=== PATIENT | female | born 1930 | race Caucasian/White ===

== ENCOUNTER 2018-11-03 19:30 | Observation (INO) ==
--- NOTE | 2018-11-03 20:03 | Emergency Department Note ---
Disposition Clinical Impression: TIA (transient ischemic attack) Disposition: Admitted As Inpatient Condition: Fair Referrals: Chito Lew MD [Primary Care Provider] - Forms: ED Satisfaction Letter Time of Disposition: 21:28 General Adult HPI - General Chief complaint: ED Neuro Symptoms/Deficit Stated complaint: "Thinks She Had a Stroke" Time Seen by Provider: 11/03/18 19:44 Source: patient Mode of arrival: ambulatory Limitations: no limitations Nursing Notes Reviewed: Yes Vital Signs Reviewed: Yes - History of Present Illness HPI Narrative: Patient is an 88-year-old female with past medical history of high blood pressure presents to the ED for evaluation of shock like symptoms that occurred at 1800 today. States that she is sitting in a chair reading a book when she had weakness in the left upper extremity and then she got up to walk and notices weakness in her left lower extremity. States that she had difficulty co ntrolling her left upper and left lower extremity. States this lasted for approximately 20 minutes and the symptoms gradually improved. Therefore symptom onset was 2 hours prior to arrival. She denies history of strokes. States that she took a full aspirin dose prior to coming in. Pain Scale: 0 - Related Data Home Medications Medication Instructions Recorded Confirmed Aspirin 162 mg PO HS 11/03/18 11/03/18 Metoprolol Succinate [Toprol Xl] 25 mg PO BID 11/03/18 11/03/18 Quetiapine Fumarate [Seroquel] 25 mg PO DAILY 11/03/18 11/03/18 Allergies Allergy/AdvReac Type Severity Reaction Status Date / Time Procaine [From Novocain] Allergy Nausea Verified 09/29/17 10:03 All systems ED: reviewed and negative except as stated. Review of Systems: As Per HPI Constitutional: Denies: fever, chills Eyes: Denies: eye pain, eye discharge, vision change Cardiovascular: Denies: chest pain, palpitations, dyspnea on exertion Respiratory: Denies: cough, dyspnea, wheezes Gastrointestinal: Denies: abdominal pain Musculoskeletal: Denies: back pain, neck pain Integumentary: Denies: rash Neurological: Reports: weakness, numbness. Denies: headache, paresthesias, confusion, abnormal gait Past Medical History - Past Medical History Attestation: Yes The following information was validated with the patient. Medical history: Reports: hypertension Psychiatric history: Reports: anxiety - Social History Smoking Status: Never smoker Smokeless Tobacco Status: No Alcohol use: Reports: none Physical Exam CONSTITUTIONAL: Well-appearing; well-nourished; A&O X 3, in no apparent distress HEAD: Normocephalic; atraumatic EYES: PERRL, no scleral icterus NOSE: The nose is normal in appearance without rhinorrhea NECK: No JVD or distended neck veins RESP: Normal chest excursion with respiration; breath sounds clear and equal bilaterally; no wheezes, rhonchi, or rales CARD: Regular rhythm, without murmurs, rub or gallop ABD: Non-distended; non-tender, soft, without rigidity, rebound or guarding,no pulsatile mass CHEST: No pain with palpation SKIN: Normal for age and race; warm and dry without diaphoresis ; no apparent lesions EXTREMITIES: Pulses are 2 plus and equal times 4 extremities, no peripheral edema or calf muscle pain NEUROLOGICAL: Patient is alert and oriented times three. Cranial nerves III-X II are intact. Sensory and motor functions are intact. Strength is 5/5 for flexion and extension in all 4 extremities. Patellar DTRS are equal and intact. Finger to nose testing is equal and normal bilaterally. - General Limitations: no limitations General appearance: alert, in no apparent distress Course Course Narrative: Patient's NIH stroke scale score 0 at this time. Her symptoms have completely resolved. Sounds like these symptoms occurred approximately 2 hours prior to arrival by the time arrival to the ED the patient is reporting no more symptoms states that she feels she is at her baseline. She is alert and oriented 3. With no focal deficits. Patient will undergo workup for TIA versus stroke and ultimately be admitted to the hospital for further evaluation and treatment. - Reevaluation(s) Reevaluation #1: Patient's head CT was negative for any acute intercranial abnormality. I will discuss the patient's case with the hospitalist to bring her in for evaluation for TIA workup. I discussed this with the patient and she agrees with that plan. She continues to remain asymptomatic. Time: 21:28 Reevaluation #2: Patient accepted by Dr. Bradshaw to the hospital for further workup of stroke/TIA. Time: 22:40 Vital Signs Temperature 97.9 F 11/03/18 19:48 Pulse Rate 82 11/03/18 19:48 Respiratory Rate 16 11/03/18 19:48 Blood Pressure 185/78 11/03/18 19:48 O2 Sat by Pulse Oximetry 97 11/03/18 19:48 Temperature 97.9 F 11/03/18 19:48 Pulse Rate 82 11/03/18 19:48 Respiratory Rate 16 11/03/18 19:48 Blood Pressure 185/78 11/03/18 19:48 O2 Sat by Pulse Oximetry 97 11/03/18 19:48 Oxygen Delivery Oxygen Delivery Room Air Medical Decision Making - Medical Records Medical records reviewed: Yes I reviewed the patient's medical records. - Lab Data Lab results reviewed: Yes I reviewed the patient's lab results. Result diagrams: 11/03/18 20:27 11/03/18 20:27 Lab Results 11/03/18 11/03/18 Range/Units 20:27 20:27 WBC 6.9 (4.3-11.1) K/mcL RBC 4.59 (3.82-4.97) M/mcL Hgb 14.8 (11.5-15.4) g/dL Hct 44.0 (35.3-44.9) % MCV 95.9 (83.0-100.0) fL MCH 32.2 (28.0-33.3) pg MCHC 33.6 (31.6-35.5) g/dL RDW 13.2 (11.5-14.5) % Plt Count 202 (140-400) K/mcL MPV 10.0 (9.4-12.4) fL Sodium 139 (136-145) mEq/L Potassium 4.4 (3.5-5.1) mEq/L Chloride 106 (98-107) mEq/L Carbon Dioxide 26 (23-29) mEq/L BUN 22 (8-23) mg/dL Creatinine 0.98 (0.60-1.20) mg/dL Est GFR ( Amer) > 60 (> 60) Est GFR (Non-Af Amer) 54 L (> 60) BUN/Creatinine Ratio 22 (6-26) Glucose 110 H (70-105) mg/dL Calculated Osmolality 292 (280-300) Calcium 9.8 (8.6-10.3) mg/dL - Radiology Data Radiology results reviewed: Yes I reviewed the patient's radiology results. Head CT 11/03/18 20:02 IMPRESSION: No acute intracranial abnormality. D/ / Kylee Abrams MD / Kylee Abrams MD Interpreting Provider: Kylee Abrams MD - EKG Data EKG #1 EKG attestation: Yes I reviewed and interpreted this EKG. EKG results narrative: EKG done at 19:48 shows sinus rhythm at a rate of 79 bpm. Normal axis. Widened QRS at 142 with a right bundle branch block which appears to be old from an EKG done on 03/04/2013. No STEMI
--- NOTE | 2018-11-03 20:34 | Emergency Department Note ---
Disposition Clinical Impression: TIA (transient ischemic attack) Disposition: Admitted As Inpatient Condition: Fair General Adult HPI - General Chief complaint: ED Neuro Symptoms/Deficit Stated complaint: "Thinks She Had a Stroke" Time Seen by Provider: 11/03/18 19:44 Source: patient Limitations: no limitations - History of Present Illness Pain Scale: 0 - Related Data Home Medications Medication Instructions Recorded Confirmed Aspirin 162 mg PO HS 11/03/18 11/03/18 Metoprolol Succinate [Toprol Xl] 25 mg PO BID 11/03/18 11/03/18 Quetiapine Fumarate [Seroquel] 25 mg PO DAILY 11/03/18 11/03/18 Allergies Allergy/AdvReac Type Severity Reaction Status Date / Time Procaine [From Novocain] Allergy Nausea Verified 09/29/17 10:03 Past Medical History - Past Medical History Medical history: Reports: hypertension Psychiatric history: Reports: anxiety - Social History Smoking Status: Never smoker Smokeless Tobacco Status: No Alcohol use: Reports: none Physical Exam - General Limitations: no limitations General appearance: alert, in no apparent distress Course Vital Signs Temperature 97.9 F 11/03/18 19:48 Pulse Rate 82 11/03/18 19:48 Respiratory Rate 16 11/03/18 19:48 Blood Pressure 185/78 11/03/18 19:48 O2 Sat by Pulse Oximetry 97 11/03/18 19:48 Temperature 98 F 11/04/18 00:10 Pulse Rate 64 11/04/18 00:10 Respiratory Rate 12 11/04/18 00:10 Blood Pressure 146/80 11/04/18 00:10 O2 Sat by Pulse Oximetry 95 11/04/18 00:10 Oxygen Delivery Oxygen Delivery Room Air Medical Decision Making - Lab Data Result diagrams: 11/03/18 20:27 11/03/18 20:27 Lab Results 11/03/18 11/03/18 Range/Units 20:27 20:27 WBC 6.9 (4.3-11.1) K/mcL RBC 4.59 (3.82-4.97) M/mcL Hgb 14.8 (11.5-15.4) g/dL Hct 44.0 (35.3-44.9) % MCV 95.9 (83.0-100.0) fL MCH 32.2 (28.0-33.3) pg MCHC 33.6 (31.6-35.5) g/dL RDW 13.2 (11.5-14.5) % Plt Count 202 (140-400) K/mcL MPV 10.0 (9.4-12.4) fL Sodium 139 (136-145) mEq/L Potassium 4.4 (3.5-5.1) mEq/L Chloride 106 (98-107) mEq/L Carbon Dioxide 26 (23-29) mEq/L BUN 22 (8-23) mg/dL Creatinine 0.98 (0.60-1.20) mg/dL Est GFR ( Amer) > 60 (> 60) Est GFR (Non-Af Amer) 54 L (> 60) BUN/Creatinine Ratio 22 (6-26) Glucose 110 H (70-105) mg/dL Calculated Osmolality 292 (280-300) Calcium 9.8 (8.6-10.3) mg/dL Attestation Statement - Attestation Attestation: I examined this patient and my medical decision-making was reviewed with the Resident Physician. I agree with the documented findings, disposition and treatment plan as described except to the extent set forth below. 20-30 minutes of left-sided weakness that spontaneously resolved. Currently asymptomatic with no motor weakness, no pronator drift on my exam, normal speech and mental status. Suspect TIA. Plan for admission for evaluation.
[2018-11-03 20:40] LABS: Hemoglobin 14.8 g/dL (11.5-15.4); Mean Corpuscular HGB Conc 33.6 g/dL (31.6-35.5); Mean Corpuscular Hemoglobin 32.2 pg (28.0-33.3); Mean Corpuscular Volume 95.9 fL (83.0-100.0); Platelet Count 202 K/mcL (140-400); Red Blood Count 4.59 M/mcL (3.82-4.97); Red Cell Distribution Width 13.2 % (11.5-14.5)
[2018-11-03 21:01] LABS: BUN/Creatinine Ratio 22 (6-26); Blood Urea Nitrogen 22 mg/dL (8-23); Calcium 9.8 mg/dL (8.6-10.3); Carbon Dioxide 26 mEq/L (23-29); Chloride 106 mEq/L (98-107); Glucose 110 mg/dL (70-105); Osmolality,Calculated 292 (280-300); Potassium 4.4 mEq/L (3.5-5.1); Sodium 139 mEq/L (136-145); eGFR For Non-African Americans 54 (> 60)
[2018-11-04] MEDS ORDERED: Naloxone 0.4 MG/ML INJ IVP PRN (01:34)
--- NOTE | 2018-11-04 02:17 | Internal Med History&Physical ---
Date of Encounter: 11/04/18 Time of Encounter: 00:00 Internal Medicine - H&P: HPI Chief complaint: Stroke Like Symptoms Admitted From: Home Plans for Post Hospital Care: Home History of present illness: Ms. Adair is a 88 year old female with past medical history significant for hypertension, anxiety, and spinal stenosis who presents for complaints of weakness to her left upper and lower extremities. States she was unable to move her left arm or left leg and describes it as "loosing control of her left arm and leg". Symptoms lasted around 30 minutes and resolved spontaneously. Symptom onset was around 2 hours prior to arrival to ER. Patient also reports taking a 324 mg aspirin at home. Son was with her during symptoms and reported she seemed to also have slurred speech. Patient denies any other symptoms during event. Head CT obtained in ER showed no acute intracranial abnormality. ER reported EKG as sinus rhythm with prior right bundle branch block when compared with previous EKG on file. Currently denies any headache, vision changes, chest pain, shortness of breath, abdominal pain, numbness, tingling, lightheadedness, dizziness, bowel or bladder changes. Has no previous history of stroke or TIA in the past. Follows regularly with primary care provider for management of hypertension and anxiety. Reports checking blood pressures periodically at home and they have been averaging in the 130's systolic. Seen by Nayanadanielle Gupta in December 2017 for low back pain and left leg weakness and had a lumbar spine MRI completed which showed disc narrowing and spinal canal stenosis. At that time symptoms were improving, and was told to follow up only as needed. Past Med Surg Social Fam HX - Past Medical History Medical history: hypertension Psychiatric history: anxiety - Past Surgical History Surgical History: hip replacement Additional surgical history: Left Hip - Social History Smoking Status: Never smoker Smokeless Tobacco Status: No Alcohol use: none Drug use: none - Family History Mother Hx Family Cardiac Disorders: Yes ([place]) Internal Medicine - H&P: Meds Aspirin 162 mg PO HS 11/03/18 [History] Metoprolol Succinate [Toprol Xl] 25 mg PO BID 11/03/18 [History] Quetiapine Fumarate [Seroquel] 25 mg PO DAILY 11/03/18 [History] Allergy/AdvReac Type Severity Reaction Status Date / Time Procaine [From Novocain] Allergy Nausea Verified 01/02/18 10:03 All Systems PM: A 10-system review of systems was performed and is negative for pertinent fi ndings except as documented above in the HPI. - Constitutional Vitals: Temp Pulse Resp BP Pulse Ox 98 F 64 12 146/80 95 11/04/18 00:10 11/04/18 00:10 11/04/18 00:10 11/04/18 00:10 11/04/18 00:10 Exam: General: Alert and oriented. Skin:Normal color, no rash, no lesions. HEENT:Pupils equal, round and reactive. Cardiovascular:Normal S1 & S2, no rubs, murmurs or gallops. No JVD. Pulse regular. Lungs:Normal breath sounds, no wheezes or crackles. Abdomen:Soft, non-tender, no rigidity. Extremities:No deformity, no edema or tenderness, no joint swelling or clubbing. Neurological:Normal cognition and motor skills. GCS 15. No neurological deficits noted. Pulses:Carotid and radial pulses normal +2. Rest of the physical exam is non contributory. Internal Med - H&P Results - Labs CBC & Chem 7: 11/03/18 20:27 11/03/18 20:27 Labs: Short CBC 11/03/18 Range/Units 20:27 WBC 6.9 (4.3-11.1) K/mcL Hgb 14.8 (11.5-15.4) g/dL Hct 44.0 (35.3-44.9) % Plt Count 202 (140-400) K/mcL BMP 11/03/18 20:27 Sodium 139 Potassium 4.4 Chloride 106 Carbon Dioxide 26 BUN 22 Creatinine 0.98 Glucose 110 H Calcium 9.8 - Impressions ITS Impressions Head CT 11/03/18 20:02 IMPRESSION: No acute intracranial abnormality. D/ / Kylee Abrams MD / Kylee Abrams MD Interpreting Provider: Kylee Abrams MD - Assessment and plan (1) Stroke-like symptoms Current Visit: Yes Status: Acute Assessment and plan: Currently resolved. Echocardiogram and carotid dopplers ordered. Head CT negative in ER, MRI ordered. Neuro checks. NPO. (2) TIA (transient ischemic attack) Current Visit: Yes Status: Suspected Assessment and plan: Suspected based on description of symptoms. Plan as stated above. (3) Decreased GFR Current Visit: Yes Status: Acute Assessment and plan: Intermittently reduced in past. Repeat labs in a.m. (4) Hypertension Current Visit: Yes Status: Chronic Assessment and plan: Continue home medications once verified. Qualifiers: Hypertension type: unspecified Qualified Code(s): I10 - Essential (primary) hypertension (5) Anxiety Current Visit: Yes Status: Chronic Assessment and plan: Continue home medications once verified. - Time Spent With Patient Total time spent is greater than 50% in coordination of care (as documented) at patient's floor/unit and/or counseling patient:
[2018-11-04 05:00] LABS: Hematocrit 42.6 % (35.3-44.9); Mean Corpuscular HGB Conc 32.9 g/dL (31.6-35.5); Mean Corpuscular Hemoglobin 31.5 pg (28.0-33.3); Mean Corpuscular Volume 95.7 fL (83.0-100.0); Mean Platelet Volume 10.6 fL (9.4-12.4); Platelet Count 191 K/mcL (140-400); Red Blood Count 4.45 M/mcL (3.82-4.97); Red Cell Distribution Width 13.1 % (11.5-14.5)
[2018-11-04 05:23] LABS: Alanine Aminotransferase 12 Units/L (7-52); Albumin 3.3 g/dL (3.5-5.7); Albumin/Globulin Ratio 1.1 (1.1-2.2); Alkaline Phosphatase 57 Units/L (34-104); Aspartate Amino Transferase 18 Units/L (13-39); BUN/Creatinine Ratio 19 (6-26); Bilirubin,Total 0.6 mg/dL (0.3-1.0); Blood Urea Nitrogen 19 mg/dL (8-23); Calcium 9.2 mg/dL (8.6-10.3); Carbon Dioxide 28 mEq/L (23-29); Chloride 108 mEq/L (98-107); Glucose 93 mg/dL (70-105); Osmolality,Calculated 294 (280-300); Potassium 3.9 mEq/L (3.5-5.1); Sodium 141 mEq/L (136-145); Total Protein 6.3 g/dL (6.4-8.9); eGFR For Non-African Americans 54 (> 60)
[2018-11-04] MEDS: Metoprolol XL (24 HR) Succ 25 MG TAB.ER.24H PO SCH ×2 (12:26→22:45)
--- NOTE | 2018-11-04 20:48 | Electrocardiograph Report ---
[place] [id number] Test Date: 2018-11-03 Pat Name: Kev Adair Department: [id number] Room: 2NE20 Gender: F Driver License Examiner: : [id number] Requested By: Castillo Ugalde Order Number: [id number] Reading MD: Fidelia Hernandez Measurements Intervals [place] Rate: 79 P: 56 VT: 168 QRS: 67 QRSD: 142 T: 43 QT: 416 QTc: 477 Interpretive Statements Sinus rhythm Right bundle branch block Electronically Signed On 11-04-2018 20:46:41 EST by Fidelia Hernandez
[2018-11-04] MEDS ORDERED: Aspirin 81 MG TAB.CHEW PO SCH (21:00)
[2018-11-05 07:08] VITALS: BP 143/76
[2018-11-05] MEDS: Metoprolol XL (24 HR) Succ 25 MG TAB.ER.24H PO SCH (08:35)
--- NOTE | 2018-11-05 09:36 | Discharge Summary ---
- NOTES TO OUTPATIENT PROVIDER Notes to Outpatient Provider: Patient did not have lipid panel checked while here and on the day of discharge had considered however she was not fasting. Discussed with patient and she would like to be discharged and follow up with PCP as an outpatient, would consider checking lipids on an outpatient basis. Orders not resulted at time of discharge: Pending orders 11/04/18 15:04 Culture,Urine [RM] Stat 11/05/18 08:58 Lipid Panel Routine Date of Encounter: 11/05/18 Time of Encounter: 09:34 - Discharge Diagnosis (1) TIA (transient ischemic attack) Priority: Primary Status: Acute (2) Stroke-like symptoms Priority: Secondary Status: Resolved (3) Decreased GFR Priority: Secondary Status: Chronic (4) Hypertension Priority: Secondary Status: Chronic Qualifiers: Hypertension type: unspecified Qualified Code(s): I10 - Essential (primary) hypertension (5) Anxiety Priority: Secondary Status: Chronic Hospital course: Ms. Adair is a 88 year old female who presented with left arm and left leg weakness. She states this came on suddenly and lasted for approximately 45 minutes. It resolved spontaneously. Patient was concern for stroke so she presented to the emergency department. Workup including brain MRI, echocardiogram, carotid duplex were unremarkable and no evidence of CVA. Patient remained symptom free throughout her hospitalization. I did discuss the possibility of checking her lipids however when I spoke with her she had eaten breakfast and therefore felt this would be an inaccurate measurement. Patient wished to be discharged and follow-up as an outpatient to discuss this with her PCP. Patient will be discharged home in stable condition. Discharge discussed with: patient - Time Spent with Patient Total time spent providing and/or coordinating discharge services: Less than 30 minutes - Discharge Medications Home Medications: Aspirin 162 mg PO HS 11/03/18 [History] Metoprolol Succinate [Toprol Xl] 25 mg PO BID 11/03/18 [History] Quetiapine Fumarate [Seroquel] 25 mg PO DAILY 11/03/18 [History] Allergies/Adverse Reactions: Allergy/AdvReac Type Severity Reaction Status Date / Time Procaine [From Novocain] Allergy Nausea Verified 09/29/17 10:03 Date of admission: 11/03/18 23:15 Primary care physician: Chito Lew MD Discharging clinician: [place] Anticipated date of discharge: 11/05/18 - Constitutional Vitals: Temp Pulse Resp BP Pulse Ox 97.8 F 50 14 143/76 99 11/05/18 07:08 11/05/18 07:08 11/05/18 07:08 11/05/18 07:08 11/05/18 07:08 General appearance: Present: A&O X 3, pleasant, no acute distress, answers questions appropriately Exam: . - Respiratory Respiratory exam: Present: CTAB. Absent: rales, rhonchi, wheezes - Cardiovascular Cardiovascular exam: Present: RRR. Absent: gallop, rubs, systolic murmur - Neurological Exam Neurological exam: Present: alert, CN II-XII intact, oriented X3, no focal deficits, strengths equal and symetr throughout. Absent: facial droop, speech deficit - Patient Status Disposition: Home, Self-Care Condition: Fair Functional capacity at discharge: uses cane/walker Overall status at discharge: patient is back to baseline - Discharge Instructions Follow Up With: Chito Lew MD [Primary Care Provider] - (1 week) Additional Instructions: Please follow-up with your primary care physician within one week. Please resume your home medications. Please continue taking aspirin daily. Please return for any new or worsening symptoms. - Diet and Activity Activity: increase activity as tolerated Diet: advance to your usual diet - VTE Documentation of Mechanical Device: Intermittent pneumatic compression device
== END 2018-11-05 12:03 | disposition home or self-care (01) ==
LOC: 2NENU 19:30 → EMEROOARM 19:30 → SUATTDRO 23:15 → 2NENU 11-04
PROVIDERS: ADMIT Pediatrics; ATTEND Internal Medicine